=== PATIENT | female | born 1975 | race Caucasian/White ===

== ENCOUNTER 2018-05-05 02:03 | Emergency (ER) | payer MEDICAID, SELFPAY ==
[~2018-05-05] VITALS: Ht 172.7 cm; Wt 71.7 kg
[2018-05-05 02:55] LABS: BASOPHILS # (AUTO) 0.04 x10^3/uL (0-0.1); BASOPHILS % (AUTO) 0 % (0-1); EOSINOPHILS % (AUTO) 5 % (1-7); LYMPHOCYTES % (AUTO) 28 % (22-44); MD NO; MEAN CORPUSCULAR HEMOGLOBIN 27.3 pg (27.0-34.8); MEAN CORPUSCULAR VOLUME 85.3 fL (80-100); MEAN PLATELET VOLUME 8.3 fL (7.4-10.4); MONOCYTES % (AUTO) 7 % (2-9); NEUTROPHILS # (AUTO) 6.92 x10^3/uL (1.8-6.8); NEUTROPHILS % (AUTO) 60 % (42-75); PLATELET COUNT 293 x10^3/uL (130-400); RED BLOOD COUNT 4.33 x10^6/uL (3.82-5.3); RED CELL DISTRIBUTION WIDTH 16.7 % (9.6-15.2)
[2018-05-05 03:08] LABS: ALBUMIN 3.4 g/dL (3.4-5.0); ANION GAP 6 mmol/L (5-15); CALCIUM 8.4 mg/dL (8.5-10.1); CHLORIDE 109 mmol/L (98-107); CREATININE 1.02 mg/dL (0.55-1.02)
[2018-05-05 03:09] VITALS: BP 117/67
[2018-05-05 03:11] LABS: FREE T4 (FREE THYROXINE) 0.98 ng/dL (0.76-1.46)
== END 2018-05-05 03:41 | disposition home or self-care (01) ==
LOC: ED 03:15
DX: R20.2 Paresthesia of skin (principal)
CPT/HCPCS: 36415; 70450; 80048; 82040; 84439; 84443; 84703; 85025; 93005; 99285